=== PATIENT | female | born 1995 | race Asian ===

== ENCOUNTER 2021-02-20 11:46 | Outpatient (CLI) | payer OTHER ==
[2021-02-20 12:25] LABS: PLATELET COUNT 307 K/uL (152-353)
[2021-02-20 12:31] LABS: POTASSIUM 3.9 mmol/L (3.6-5.2)
== END 2021-02-20 22:02 | disposition home or self-care (01) ==
LOC: LABW 11:46
PROVIDERS: ATTEND Internal Medicine
DX: K85.90 Acute pancreatitis without necrosis or infection, unspecified (principal)
CPT/HCPCS: 36415; 80053; 81000; 82150; 83690; 85027

== ENCOUNTER 2021-03-07 06:55 | Outpatient (CLI) | payer OTHER ==
[2021-03-07 07:58] LABS: PLATELET COUNT 238 K/uL (152-353)
[2021-03-07 08:11] LABS: POTASSIUM 3.4 mmol/L (3.6-5.2)
== END 2021-03-07 20:12 | disposition home or self-care (01) ==
LOC: LABW 06:55
PROVIDERS: ATTEND Internal Medicine
DX: R10.84 Generalized abdominal pain (principal)
CPT/HCPCS: 36415; 80053; 82150; 83690; 85027

== ENCOUNTER 2021-03-15 07:45 | Outpatient (CLI) | payer OTHER | END 2021-03-15 22:43 | disposition home or self-care (01) | LOC: CT 07:45 | PROVIDERS: ATTEND Internal Medicine | DX: R10.84 Generalized abdominal pain (principal) | CPT/HCPCS: Q9963 ==

== ENCOUNTER 2022-03-25 16:38 | Outpatient (CLI) | payer OTHER | END 2022-03-25 19:04 | disposition home or self-care (01) | LOC: LABW 16:38 | PROVIDERS: ATTEND Nurse Practitioner Family | DX: U07.1 COVID-19 (principal) | CPT/HCPCS: 87486; 87502; 87581; 87633; 87635; 87798; U0003 ==

== ENCOUNTER 2023-02-24 11:34 | Outpatient (CLI) | payer OTHER ==
[2023-02-24 12:03] LABS: POTASSIUM 3.9 mmol/L (3.6-5.2)
[2023-02-24 12:11] LABS: PLATELET COUNT 277 K/uL (152-353)
== END 2023-02-24 20:42 | disposition home or self-care (01) ==
LOC: LABW 11:34
PROVIDERS: ATTEND Plastic Surgery
DX: Z01.812 Encounter for preprocedural laboratory examination (principal)
CPT/HCPCS: 36415; 80053; 85027; 87535; G0432

== ENCOUNTER 2023-03-03 09:17 | Outpatient (CLI) | payer OTHER ==
[2023-03-03 11:22] LABS: POTASSIUM 4.1 mmol/L (3.6-5.2)
== END 2023-03-03 18:53 | disposition home or self-care (01) ==
LOC: US 09:17
PROVIDERS: ATTEND Nurse Practitioner Family
DX: R10.12 Left upper quadrant pain (principal)
CPT/HCPCS: 36415; 80053; 82150; 83690

== ENCOUNTER 2023-03-04 17:40 | Outpatient (CLI) | payer OTHER | END 2023-03-04 19:10 | disposition home or self-care (01) | LOC: RESP 17:40 | PROVIDERS: ATTEND Family Medicine | DX: Z01.818 Encounter for other preprocedural examination (principal) | CPT/HCPCS: 93005 ==

== ENCOUNTER 2023-03-06 09:34 | Outpatient (CLI) | payer OTHER ==
[2023-03-06 10:45] LABS: PLATELET COUNT 292 K/uL (152-353)
== END 2023-03-06 17:00 ==
LOC: LABW 09:34
PROVIDERS: ATTEND Family Medicine
DX: D72.828 Other elevated white blood cell count (principal)
CPT/HCPCS: 36415; 85027